=== PATIENT | male | born 1990 | race Caucasian/White ===

== ENCOUNTER 2020-02-28 06:20 | Emergency (ER) | payer SELFPAY ==
[2020-02-28] MEDS ORDERED: Ondansetron 4 MG Tab.DIS PO ONE (07:17)
[2020-02-28] MEDS ORDERED: Meclizine 25 MG Tab PO ONE (07:17)
--- NOTE | 2020-02-28 07:23 | EDM.PDOC ---
ED HPI GENERAL MEDICAL PROBLEM - General Chief Complaint: Neurological Problem Stated Complaint: DIZZY Time Seen by Provider: 02/28/20 07:06 Source of Information: Reports: Patient, RN Notes Reviewed History Limitations: Reports: No Limitations - History of Present Illness INITIAL COMMENTS - FREE TEXT/NARRATIVE: 29-year-old gentleman presents emergency department a complaint of dizziness, he awoke this morning approximately 3 AM dizzy sudden onset nausea and vomiting diaphoretic. He states his had one event like this in the past about 3 or 4 years ago resolved in a day or 2. He has recently had sinus type infection with some drainage out of the right ear he felt feverish this morning. Also has a family history with father and grandfather with what he describes as benign positional vertigo - Related Data Allergies Allergy/AdvReac Type Severity Reaction Status Date / Time No Known Allergies Allergy Verified 02/28/20 06:37 Home Meds: Home Meds Pseudoephedrine HCl [Sudafed] 30 mg PO DAILY PRN 02/28/20 [History] Past Medical History Cardiovascular History: Reports: Hypertension Social & Family History - Family History HEENT: Reports: Other (See Below) (Father benign positional vertigo) - Tobacco Use Smoking Status *Q: Never Smoker Second Hand Smoke Exposure: Yes - Caffeine Use Caffeine Use: Reports: Coffee, Energy Drinks, Soda - Recreational Drug Use Recreational Drug Use: No ED ROS GENERAL - Review of Systems Review Of Systems: See Below Constitutional: Reports: Fever, Weakness. Denies: Chills HEENT: Reports: Sinus Problem, Vertigo Respiratory: Reports: No Symptoms Cardiovascular: Reports: No Symptoms GI/Abdominal: Reports: No Symptoms Musculoskeletal: Reports: No Symptoms Skin: Reports: No Symptoms Neurological: Reports: Difficulty Walking ED EXAM, DIZZINESS - Physical Exam Exam: See Below Text/Narrative:: Head impulse test: corrective saccades is present when head turned to the bilateral head movement Nystagmus: unidirectional, horizontal 0-beating nystagmus otherwise none noted Skew deviation: absent Exam Limited By: No Limitations General Appearance: Alert, WD/WN, No Apparent Distress Nystagmus: No: worsens with head to L, worsens with head to R, reproducible, constant, short duration Ears: Normal External Exam, Normal Canal, Hearing Grossly Normal, Normal TMs Nose: Normal Inspection, Normal Mucosa, No Blood Throat/Mouth: Normal Inspection, Normal Lips, Normal Teeth, Normal Gums, Normal Oropharynx, Normal Voice, No Airway Compromise Head Exam: Atraumatic, Normocephalic Neck: Normal Inspection, Supple, Non-Tender, Full Range of Motion Respiratory/Chest: No Respiratory Distress, Lungs Clear, Normal Breath Sounds, No Accessory Muscle Use, Chest Non-Tender Cardiovascular: Regular Rate, Rhythm, No Murmur GI/Abdominal: Soft, Non-Tender Course - Vital Signs Last Recorded V/S: Last Vital Signs Temp 98.1 F 02/28/20 06:39 Pulse 62 02/28/20 06:39 Resp 15 02/28/20 07:28 BP 131/89 02/28/20 07:28 Pulse Ox 97 02/28/20 07:28 - Orders/Labs/Meds Meds: Medications Discontinued Medications Generic Name Dose Route Start Last Admin Trade Name Freq PRN Reason Stop Dose Admin Meclizine HCl 25 mg 02/28/20 07:17 02/28/20 07:27 Antivert PO 02/28/20 07:18 25 mg ONETIME ONE Administration Ondansetron HCl 4 mg 02/28/20 07:17 02/28/20 07:27 Zofran Odt PO 02/28/20 07:18 4 mg ONETIME ONE Administration Departure - Departure Time of Disposition: 08:23 Disposition: Home, Self-Care 01 Condition: Fair Clinical Impression: Peripheral vertigo Qualifiers: Laterality: unspecified laterality Qualified Code(s): H81.399 - Other peripheral vertigo, unspecified ear - Discharge Information Instructions: Vertigo, [id number] Referrals: PCP,None [Primary Care Provider] - Forms: ED Department Discharge Additional Instructions: Use meclizine as needed for dizzy symptoms, use Zofran as needed for nausea and vomiting, please followup with your primary care provider in 3-5 days if not better, please call return to the emergency department with worsening of symptoms. Sepsis Event Note - Evaluation Sepsis Screening Result: No Definite Risk - Focused Exam Vital Signs: Vital Signs Temp Pulse Resp BP Pulse Ox 02/28/20 07:28 15 131/89 97 02/28/20 06:39 98.1 F 62 16 140/82 98 Date Exam was Performed: 02/28/20 Time Exam was Performed: 08:22 - Assessment/Plan Plan: Assessment Acuity = acute Site and laterality = peripheral vertigo Etiology = unknown Manifestations = nausea and vomiting Location of injury = Home Lab values = none Plan Good improvement combination Zofran and meclizine he was able to ambulate around the emergency department without difficulty nausea and vomiting had resolved. Discharged home with meclizine 25 mg p.o. 3 times daily as needed # 100 and Zofran 4 mg ODT 1 tab p.o. 3 times daily as needed #5 follow-up primary care 3 to 5 days if not better This note was dictated using [employer] voice recognition software please call with any questions on syntax or grammar.
== END 2020-02-28 08:31 | disposition home or self-care (01) ==
LOC: JP.ED 06:20 → EDSEX 06:20 → JP.ED 08:31
DX: H81.399 Other peripheral vertigo, unspecified ear (principal); I10 Essential (primary) hypertension; Z77.22 Contact with and (suspected) exposure to environmental tobacco smoke (acute) (chronic)
CPT/HCPCS: 99283; A9270

== ENCOUNTER 2020-05-20 22:29 | Emergency (ER) | payer SELFPAY ==
--- NOTE | 2020-05-20 23:17 | EDM.PDOC ---
ED HPI GENERAL MEDICAL PROBLEM - General Chief Complaint: Respiratory Problem Stated Complaint: BREATHING TROUBLE Time Seen by Provider: 05/20/20 23:02 Source of Information: Reports: Patient, Family, RN Notes Reviewed History Limitations: Reports: No Limitations - History of Present Illness INITIAL COMMENTS - FREE TEXT/NARRATIVE: 30-year-old gentleman presents emergency department a complaint of shortness of breath, he states his been having problems with this for the last couple weeks he will get palpitations he will get sweaty he admits he is under a lot of stress he does have some racing thoughts he has trouble settling his mind down at times. He has been evaluated by primary care started on inhalers albuterol Claritin he states he really does not help very much. Also has a family history mother with severe anxiety - Related Data Allergies Allergy/AdvReac Type Severity Reaction Status Date / Time No Known Allergies Allergy Verified 02/28/20 06:37 Home Meds: Home Meds Albuterol [Proventil HFA] 2 puff INH ASDIRECTED PRN 05/20/20 [History] Loratadine [Claritin] 10 mg PO DAILY 05/20/20 [History] Montelukast [Singulair] 10 mg PO DAILY 05/20/20 [History] Past Medical History Cardiovascular History: Reports: Hypertension Social & Family History - Family History Family Medical History: Noncontributory HEENT: Reports: Other (See Below) - Tobacco Use Smoking Status *Q: Never Smoker - Caffeine Use Caffeine Use: Reports: Soda Other Caffeine Use: 3 bottles of caffeine soda daily at work and then come home and have 3-4 cans at home - Recreational Drug Use Recreational Drug Use: No ED ROS GENERAL - Review of Systems Review Of Systems: See Below Constitutional: Reports: Diaphoresis HEENT: Reports: No Symptoms Respiratory: Reports: Shortness of Breath Cardiovascular: Reports: Chest Pain, Palpitations GI/Abdominal: Reports: Nausea Musculoskeletal: Reports: No Symptoms Skin: Reports: No Symptoms ED EXAM, GENERAL - Physical Exam Exam: See Below Exam Limited By: No Limitations General Appearance: Alert, WD/WN, No Apparent Distress Respiratory/Chest: No Respiratory Distress, Lungs Clear, Normal Breath Sounds, No Accessory Muscle Use, Chest Non-Tender Cardiovascular: Regular Rate, Rhythm, No Murmur GI/Abdominal: Soft, Non-Tender Course - Vital Signs Last Recorded V/S: Last Vital Signs Temp 98.6 F 05/20/20 22:41 Pulse 68 05/20/20 22:41 Resp 18 05/20/20 22:41 BP 132/87 05/20/20 22:41 Pulse Ox 99 05/20/20 22:41 Departure - Departure Time of Disposition: 23:16 Disposition: Home, Self-Care 01 Condition: Fair Clinical Impression: Panic attacks - Discharge Information Instructions: Panic Attack Referrals: Linn Prado PA-C [Primary Care Provider] - Additional Instructions: Try the Ativan when 1 of these attacks occur with the shortness of breath and palpitations, recommend follow-up with your primary care for wellness exam consider checking thyroid and other blood work also consider long-term medication for generalized anxiety daily tablet so he would not have to use the medication provided today, call return to the emergency department worsening of symptoms Sepsis Event Note (ED) - Evaluation Sepsis Screening Result: No Definite Risk - Focused Exam Vital Signs: Vital Signs Temp Pulse Resp BP Pulse Ox 05/20/20 22:41 98.6 F 68 18 132/87 99 - Assessment/Plan Plan: Assessment Acuity = acute Site and laterality = panic attacks Etiology = generalized anxiety disorder Manifestations = none Location of injury = Home Lab values = none Plan I did talk to him about further evaluation including work-up however he declined due to cost were to do a trial of Ativan 1 mg p.o. 3 times daily PRN total #10 Best him to follow-up with his primary care for a wellness exam consider evaluation of thyroid as well as long-term daily medication for generalized anxiety This note was dictated using [employer] voice recognition software please call with any questions on syntax or grammar.
== END 2020-05-20 23:28 | disposition home or self-care (01) ==
LOC: JP.ED 22:29
DX: F41.0 Panic disorder [episodic paroxysmal anxiety] (principal); I10 Essential (primary) hypertension; Z79.899 Other long term (current) drug therapy
CPT/HCPCS: 99284

== ENCOUNTER 2021-04-02 20:30 | Emergency (ER) | payer OTHER ==
--- NOTE | 2021-04-02 21:14 | EDM.PDOC ---
ED HPI GENERAL MEDICAL PROBLEM - General Chief Complaint: Upper Extremity Injury/Pain Stated Complaint: KICKED BY HORSE Time Seen by Provider: 04/02/21 20:55 Source of Information: Reports: Patient History Limitations: Reports: No Limitations - History of Present Illness INITIAL COMMENTS - FREE TEXT/NARRATIVE: 31 yo male presents to ER following being kick in the left wrist by a horse. He was trimming hooves and the horse had three quick short kicks to the wrist impacting at the base of the 1st metacarpal, mild edema with moderate tenderness. generally healthy - Related Data Allergies Allergy/AdvReac Type Severity Reaction Status Date / Time No Known Allergies Allergy Verified 04/02/21 20:48 Home Meds: Home Meds Escitalopram [Lexapro] 1 tab PO DAILY 04/02/21 [History] Past Medical History Cardiovascular History: Reports: Hypertension Social & Family History - Family History Family Medical History: No Pertinent Family History HEENT: Reports: Other (See Below) - Tobacco Use Tobacco Use Status *Q: Never Tobacco User - Caffeine Use Caffeine Use: Reports: Soda Other Caffeine Use: 3 bottles of caffeine soda daily at work and then come home and have 3-4 cans at home Review of Systems - Review of Systems Review Of Systems: See Below Constitutional: Denies: Chills, Fever Respiratory: Denies: Shortness of Breath, Wheezing Cardiovascular: Denies: Chest Pain Skin: Denies: Rash ED EXAM, GENERAL - Physical Exam Exam: See Below Exam Limited By: No Limitations General Appearance: Alert, WD/WN, No Apparent Distress Respiratory/Chest: No Respiratory Distress Extremities: Joint Swelling (left wrist point tenderness at the base of the first medacarpel and lateral carpels, mild edema), Limited Range of Motion Course - Vital Signs Last Recorded V/S: Last Vital Signs Temp 36.6 C 04/02/21 21:06 Pulse 84 04/02/21 21:06 Resp 15 04/02/21 21:06 BP 117/80 04/02/21 21:06 Pulse Ox 97 04/02/21 21:06 - Orders/Labs/Meds Orders: Active Orders 24 hr Category Date Time Status Consult to Orthopedic Clinic [CONS] Routine Cons 04/02/21 21:44 Ordered Wrist Comp Min 3V Lt [CR] Stat Exams 04/02/21 21:09 Taken - Radiology Interpretation Free Text/Narrative:: preliminary review no acute osseus injury Departure - Departure Time of Disposition: 21:48 Disposition: Home, Self-Care 01 Condition: Good Clinical Impression: Left wrist injury Qualifiers: Encounter type: initial encounter Qualified Code(s): S69.92XA - Unspecified injury of left wrist, hand and finger(s), initial encounter - Discharge Information *PRESCRIPTION DRUG MONITORING PROGRAM REVIEWED*: Not Applicable *COPY OF PRESCRIPTION DRUG MONITORING REPORT IN PATIENT TORSTEN: Not Applicable Instructions: Wrist Fracture Treated With Immobilization, [id number] Referrals: PCP,None [Primary Care Provider] - Forms: ED Department Discharge Additional Instructions: thumb spica in place until orthopedic follow-up ice and elevation tylenol 1000 mg every 6 hours and Ibuprofen 600 mg Sepsis Event Note (ED) - Evaluation Sepsis Screening Result: No Definite Risk - Focused Exam Vital Signs: Vital Signs Temp Pulse Resp BP Pulse Ox 04/02/21 21:06 36.6 C 84 15 117/80 97 04/02/21 21:05 36.6 C 84 15 117/80 97 - My Orders Last 24 Hours: My Active Orders 04/02/21 21:09 Wrist Comp Min 3V Lt [CR] Stat 04/02/21 21:44 Consult to Orthopedic Clinic [CONS] Routine - Assessment/Plan Last 24 Hours: My Active Orders 04/02/21 21:09 Wrist Comp Min 3V Lt [CR] Stat 04/02/21 21:44 Consult to Orthopedic Clinic [CONS] Routine
--- NOTE | 2021-04-03 13:11 | CR ---
Wrist Comp Min 3V Lt CLINICAL HISTORY: Trauma FINDINGS: There is no acute fracture or dislocation within the left wrist. Impression: Negative
== END 2021-04-02 22:05 | disposition home or self-care (01) ==
LOC: JP.ED 20:30
DX: S69.92XA Unspecified injury of left wrist, hand and finger(s), initial encounter (principal); R60.0 Localized edema; W55.12XA Struck by horse, initial encounter
CPT/HCPCS: 73110-26-LT; 73110-LT; 99283; 99283-25

== ENCOUNTER 2021-10-21 08:03 | Emergency (ER) | payer SELFPAY ==
[2021-10-21 09:21] LABS: CORONAVIRUS COVID-19 NAA POSITIVE (NEGATIVE)
--- NOTE | 2021-10-21 09:35 | EDM.PDOC ---
ED HPI GENERAL MEDICAL PROBLEM - General Chief Complaint: Respiratory Problem Stated Complaint: COUGH Time Seen by Provider: 10/21/21 09:15 Source of Information: Reports: Patient, RN History Limitations: Reports: No Limitations - History of Present Illness INITIAL COMMENTS - FREE TEXT/NARRATIVE: 31 yo unvaccinated male presents with Covid-like sx's. Wants a Covid test. Has been ill for about a week. Is missing work. Onset: Gradual Onset Date: 10/14/21 Duration: Week(s): (1), Improving Location: Reports: Generalized Quality: Reports: Other (none) Severity: Mild Improves with: Reports: Other (time) Worsens with: Reports: None Context: Reports: Other (See HPI) Associated Symptoms: Reports: Malaise Treatments [employer]: Reports: Other (see below) (none) - Related Data Allergies Allergy/AdvReac Type Severity Reaction Status Date / Time No Known Allergies Allergy Verified 10/21/21 08:16 Home Meds: Home Meds Escitalopram [Lexapro] 20 mg PO DAILY 04/02/21 [History] Albuterol Sulfate [Albuterol Sulfate Hfa] 2 puff INH Q4H PRN 04/03/21 [History] Loratadine 10 mg PO DAILY 04/03/21 [History] Meclizine [Antivert] 25 mg PO TID PRN 04/03/21 [History] Ondansetron [Zofran Odt] 8 mg PO Q6H PRN 04/03/21 [History] Past Medical History Cardiovascular History: Reports: Hypertension Respiratory History: Reports: Pneumonia, Recurrent Musculoskeletal History: Reports: Fracture Other Musculoskeletal History: left wrist 04/02/21 - Past Surgical History Musculoskeletal Surgical History: Reports: None Social & Family History - Family History Family Medical History: No Pertinent Family History HEENT: Reports: Other (See Below) - Tobacco Use Tobacco Use Status *Q: Never Tobacco User - Caffeine Use Caffeine Use: Reports: Soda Other Caffeine Use: 3 bottles of caffeine soda daily at work and then come home and have 3-4 cans at home - Recreational Drug Use Recreational Drug Use: No ED ROS GENERAL - Review of Systems Review Of Systems: See Below Constitutional: Reports: Malaise HEENT: Reports: No Symptoms Respiratory: Reports: No Symptoms Cardiovascular: Reports: No Symptoms Endocrine: Reports: No Symptoms GI/Abdominal: Reports: No Symptoms : Reports: No Symptoms Musculoskeletal: Reports: No Symptoms Skin: Reports: No Symptoms Neurological: Reports: No Symptoms Psychiatric: Reports: No Symptoms ED EXAM, GENERAL - Physical Exam Exam: See Below Exam Limited By: No Limitations General Appearance: Alert, WD/WN, No Apparent Distress Eye Exam: Bilateral Eye: Normal Inspection Ears: Normal External Exam, Normal Canal, Hearing Grossly Normal Ear Exam: Bilateral Ear: Auricle Normal, Canal Normal Nose: Normal Inspection, No Blood Throat/Mouth: Normal Inspection, Normal Lips, Normal Voice, No Airway Compromise Head: Atraumatic, Normocephalic Neck: Normal Inspection Respiratory/Chest: No Respiratory Distress, Lungs Clear, Normal Breath Sounds, No Accessory Muscle Use Cardiovascular: Regular Rate, Rhythm, No Edema Extremities: Normal Inspection Neurological: Alert, Oriented, CN II-XII Intact, Normal Cognition, No Motor/Sensory Deficits Psychiatric: Normal Affect, Normal Mood Skin Exam: Warm, Dry, Intact, Normal Color, No Rash Course - Vital Signs Last Recorded V/S: Last Vital Signs Temp 36.2 C 10/21/21 08:17 Pulse 89 10/21/21 08:17 Resp 18 10/21/21 08:17 BP 152/99 H 10/21/21 08:17 Pulse Ox 98 10/21/21 08:17 - Orders/Labs/Meds Orders: Active Orders 24 hr Category Date Time Status Isolation [COMM] Stat Oth 10/21/21 08:36 Ordered Labs: Laboratory Tests 10/21/21 Range/Units 08:30 Influenza Type A RNA Negative (NEGATIVE) RSV RNA ([facility]) Negative (NEGATIVE) Influenza Type B RNA Negative (NEGATIVE) SARS-CoV-2 RNA ([facility]) Positive H (NEGATIVE) Departure - Departure Time of Disposition: 09:33 Disposition: Home, Self-Care 01 Condition: Good Clinical Impression: COVID-19 - Discharge Information *PRESCRIPTION DRUG MONITORING PROGRAM REVIEWED*: Not Applicable *COPY OF PRESCRIPTION DRUG MONITORING REPORT IN PATIENT TORSTEN: Not Applicable Instructions: What You Should Know About COVID-19 to Protect Yourself and Others - CDC Referrals: Linn Prado PA-C [Primary Care Provider] - Forms: ED Department Discharge, ED Return to Work/School Form Additional Instructions: Take acetaminophen for pain or fever control. Drink ample fluids. Wash your samson ds often and avoid people to prevent spread. Stay in contact with your provider about your condition. Sepsis Event Note (ED) - Evaluation Sepsis Screening Result: No Definite Risk - Focused Exam Vital Signs: Vital Signs Temp Pulse Resp BP Pulse Ox 10/21/21 08:17 36.2 C 89 18 152/99 H 98 - My Orders Last 24 Hours: My Active Orders 10/21/21 08:36 Isolation [COMM] Stat - Assessment/Plan Last 24 Hours: My Active Orders 10/21/21 08:36 Isolation [COMM] Stat
== END 2021-10-21 10:01 | disposition home or self-care (01) ==
LOC: JP.ED 08:03
DX: U07.1 COVID-19 (principal); I10 Essential (primary) hypertension; Z79.899 Other long term (current) drug therapy
CPT/HCPCS: 0241U; 99283

== ENCOUNTER 2022-01-09 10:35 | Emergency (ER) | payer SELFPAY ==
[2022-01-09] MEDS ORDERED: LORazepam 1 MG Tab PO ONE (11:19)
[2022-01-09] MEDS ORDERED: Meclizine 25 MG Tab PO ONE (12:58)
== END 2022-01-09 14:24 | disposition home or self-care (01) ==
LOC: JP.ED 10:35
DX: R42 Dizziness and giddiness (principal); I10 Essential (primary) hypertension
CPT/HCPCS: 99282; 99283; A9270

== ENCOUNTER 2022-03-18 12:03 | Emergency (ER) | payer SELFPAY ==
[2022-03-18] MEDS ORDERED: Ondansetron 4 MG Tab.DIS PO ONE (13:10)
[2022-03-18] MEDS ORDERED: LORazepam 1 MG Tab PO ONE (13:10)
== END 2022-03-18 15:01 | disposition home or self-care (01) ==
LOC: JP.ED 12:03
DX: R42 Dizziness and giddiness (principal); I10 Essential (primary) hypertension; Z79.899 Other long term (current) drug therapy
CPT/HCPCS: 99282; 99283; A9270; Q0162

== ENCOUNTER 2025-02-22 07:29 | Emergency (ER) | payer SELFPAY ==
[2025-02-22] MEDS: Ketorolac 30 MG/ML SDV IVPUSH ONE (07:56)
[2025-02-22 07:58] LABS: BASOPHILS ABSOLUTE AUTO 0.03 K/uL (0.00-0.10); BASOPHILS PERCENT AUTO 0.5 % (0.1-1.3); EOSINOPHILS ABSOLUTE AUTO 0.04 K/uL (0.00-0.40); EOSINOPHILS PERCENT AUTO 0.6 % (0.0-5.4); HEMATOCRIT 44.3 % (38.4-49.7); HEMOGLOBIN 15.5 g/dL (12.9-16.9); IMMATURE GRAN ABSOLUTE AUTO 0.04 K/uL (0.00-0.23); IMMATURE GRAN PERCENT AUTO 0.6 % (0.0-0.7); LYMPHOCYTES ABSOLUTE AUTO 1.17 K/uL (0.8-3.3); LYMPHOCYTES PERCENT AUTO 18.5 % (11.4-47.7); MEAN CORPUSCULAR HEMOGLOBIN 30.7 pg (31.6-35.5); MEAN CORPUSCULAR VOLUME 87.7 fL (81.4-99.0); MONOCYTES ABSOLUTE AUTO 0.43 K/uL (0.20-0.90); MONOCYTES PERCENT AUTO 6.8 % (3.3-12.6); NEUTROPHILS ABSOLUTE AUTO 4.62 K/uL (1.0-7.6); PLATELET COUNT,PLT 266 K/uL (130-375); RED BLOOD CELL COUNT 5.05 M/uL (4.14-5.76); WHITE BLOOD CELL COUNT,WBC 6.3 K/uL (3.2-11.0)
[2025-02-22] MEDS: Sodium Chloride 0.9% 1,000 ML IV ONE (07:59)
[2025-02-22] MEDS: Ondansetron 4 MG/2 ML SDV IVPUSH ONE (08:08)
[2025-02-22 08:13] LABS: ANION GAP 13.8 mmol/L (5.0-14.0); CALCIUM 9.2 mg/dL (8.5-10.1); CREATININE 1.2 mg/dL (0.8-1.3); EST CRCL DRUG DOSING (CG) 94.31 mL/min; POTASSIUM,K 3.8 mmol/L (3.6-5.2)
[2025-02-22 09:12] LABS: APPEARANCE,URINE CLEAR (CLEAR); BILIRUBIN,URINE NEGATIVE (NEGATIVE); COLOR,URINE YELLOW (YELLOW); GLUCOSE,URINE NEGATIVE (NEGATIVE); KETONES,URINE TRACE mg/dL (NEGATIVE); LEUKOCYTE ESTERASE,URINE NEGATIVE (NEGATIVE); NITRITE,URINE NEGATIVE (NEGATIVE); OCCULT BLOOD,URINE SMALL (NEGATIVE); PROTEIN,URINE 30 mg/dL (NEGATIVE)
[2025-02-22 09:21] LABS: AMORPHOUS SEDIMENT,URINE NOT SEEN; BACTERIA,URINE NOT SEEN; EPITHELIAL CELLS,URINE FEW; MUCUS,URINE MANY; WBC,URINE 0-5 (0-5)
== END 2025-02-22 10:20 | disposition home or self-care (01) ==
LOC: JP.ED 07:29
DX: N20.2 Calculus of kidney with calculus of ureter (principal); N13.4 Hydroureter; I10 Essential (primary) hypertension; Z79.899 Other long term (current) drug therapy
CPT/HCPCS: 36415; 74176; 80048; 81001; 85025; 96361; 96374; 96375; 99284; J1885; J2405; J7030